=== PATIENT | female | born 1970 | race Caucasian/White ===

== ENCOUNTER 2017-07-04 17:05 | Emergency (ER) | payer OTHER ==
[2017-07-04 17:25] VITALS: BP 113/79
--- NOTE | 2017-07-04 17:58 | UC ---
Skin Complaint HPI - HPI Summary HPI Summary: saw house calls nurse for ingrown left great toe nail a couple of weeks ago portion of nail removed today had some pus and increased redness hx DM - History of Current Complaint Chief Complaint: UCLowerExtremity Time Seen by Provider: 07/04/17 17:38 Stated Complaint: LEFT GREAT TOE INFECTION Hx Obtained From: Patient Onset/Duration: Gradual Onset, Lasting Days Timing: Constant Onset Severity: Mild Current Severity: Mild Pain Intensity: 1 Pain Scale Used: 0-10 Numeric Character: Swelling, Redness Aggravating Factor(s): Touch Associated Signs & Symptoms: Positive: Drainage, Tenderness - Allergy/Home Medications Allergies/Adverse Reactions: Allergies Allergy/AdvReac Type Severity Reaction Status Date / Time Cephalexin [From Keflex] Allergy Nausea And Verified 07/04/17 17:16 Vomiting Penicillins Allergy Hives Verified 07/04/17 17:16 Sulfa Antibiotics Allergy Nausea And Verified 07/04/17 17:16 Vomiting Home Medications: Home Medications Gabapentin CAP(*) [Neurontin 100 mg CAP(*)] 200 mg BID 07/04/17 [History Confirmed 07/04/17] Ibuprofen TAB* [Motrin TAB* 800 MG] 800 mg Q8H PRN 07/04/17 [History Confirmed 07/04/17] Lisinopril TAB* [Prinivil TAB 5 MG*] 1 tab DAILY 07/04/17 [History Confirmed ] Metformin ER (NF) [Glucophage ER 750 MG TAB (NF)] 750 mg BID 07/04/17 [History Confirmed 07/04/17] Pravastatin (NF) [Pravachol (NF)] 10 tab BEDTIME 07/04/17 [History Confirmed ] Review of Systems Constitutional: Negative Skin: Negative Eyes: Negative ENT: Negative Respiratory: Negative Cardiovascular: Negative Gastrointestinal: Negative Genitourinary: Negative Motor: Negative Neurovascular: Negative Musculoskeletal: Negative Neurological: Negative Psychological: Negative Is Patient Immunocompromised?: No All Other Systems Reviewed And Are Negative: Yes PMH/Surg Hx/FS Hx/Imm Hx Previously Healthy: Yes Endocrine History: Diabetes Cardiovascular History: Hypertension - Surgical History Surgical History: Yes Surgery Procedure, Year, and Place: APPENDIX. CARPAL TUNNEL BILATERAL HANDS. RIGHT ANKLE SURGERY TOOK NERVE TO PUT IN HAND - Family History Known Family History: Positive: Cardiac Disease, Hypertension, Diabetes - Social History Alcohol Use: None Substance Use Type: None Smoking Status (MU): Current Every Day Smoker Type: Cigarettes Amount Used/How Often: 1/2 PPD - Immunization History Most Recent Influenza Vaccination: not yet 2016 Physical Exam Triage Information Reviewed: Yes Appearance: Well-Appearing, No Pain Distress, Well-Nourished Vital Signs: Initial Vital Signs Temp 98 F 07/04/17 17:18 Pulse 83 07/04/17 17:18 Resp 18 07/04/17 17:18 BP 113/79 07/04/17 17:18 Pulse Ox 100 07/04/17 17:18 Vital Signs Reviewed: Yes Eyes: Positive: Conjunctiva Clear ENT: Negative: Hearing grossly normal, Nasal congestion, Nasal drainage, Trismus , Muffled/hoarse voice Neck: Positive: Supple, Nontender Respiratory: Positive: Lungs clear, Normal breath sounds, No respiratory distress Cardiovascular: Positive: RRR, No Murmur, Pulses Normal Abdomen Description: Positive: Nontender, No Organomegaly, Soft Musculoskeletal: Positive: ROM Intact, No Edema Neurological: Positive: Alert Psychological Exam: Normal Skin Exam: Other - see image Course/Dx - Diagnoses Provider Diagnoses: cellulits left great toe Discharge - Discharge Plan Condition: Stable Disposition: HOME Prescriptions: DOXYcycline CAP(*) [DOXYcycline 100MG CAP(*)] 100 mg PO BID #14 cap Patient Education Materials: Cellulitis (ED) Referrals: Armen Olsen [Primary Care Provider] - 5 Days (if not better) Images Feet (Multiple View): 1 - erthema/swelling/not flutuent
== END 2017-07-04 17:55 | disposition home or self-care (01) ==
LOC: UCCORT 17:05
DX: L03.032 Cellulitis of left toe (principal); F17.210 Nicotine dependence, cigarettes, uncomplicated; Z88.0 Allergy status to penicillin; Z88.1 Allergy status to other antibiotic agents
CPT/HCPCS: 99212; G0463

== ENCOUNTER 2017-11-09 09:09 | Emergency (ER) | payer OTHER ==
[2017-11-09 10:35] VITALS: BP 113/82
[2017-11-09] MEDS ORDERED: Albuterol 2.5 MG/3 ML NEB.SOL* (0.083%) INH ONE (11:01)
--- NOTE | 2017-11-09 11:18 | UC ---
Respiratory Complaint HPI - HPI Summary HPI Summary: This is a 46 yo female with asthma and DM who presents with c/o 5d of cough and SOB. No CP. Cough is mostly dry. No fever or severe bodyaches. No n/v/d. She has been using her albuterol regularly without relief. No known exposure to influenza - History of Current Complaint Chief Complaint: UCRespiratory Stated Complaint: COUGH, CONGESTION, SINUSES Hx Last Menstrual Period: 09/27/17 Pain Intensity: 0 - Allergies/Home Medications Allergies/Adverse Reactions: Allergies Allergy/AdvReac Type Severity Reaction Status Date / Time cephalexin [From Keflex] Allergy Nausea And Verified 11/09/17 10:25 Vomiting Penicillins Allergy Hives Verified 11/09/17 10:25 Sulfa (Sulfonamide Allergy Nausea And Verified 11/09/17 10:25 Antibiotics) Vomiting Home Medications: Home Medications Acetaminophen [Acetaminophen Extra Strength] 1,000 mg PO ONCE PRN 11/09/17 [ History Confirmed 11/09/17] Albuterol HFA INHALER* [Ventolin HFA Inhaler*] 1 - 2 puff INH Q4H PRN 11/09/17 [ History Confirmed 11/09/17] Dm/PE/Acetaminophen/Doxylamine [Daytime-Nighttime Cold-Flu] 2 each PO ONCE PRN 11/09/17 [History Confirmed 11/09/17] Fluticasone-Salmeterol 100-50* [Advair Diskus 100-50*] 1 puff INH BID 11/09/17 [ History Confirmed 11/09/17] PMH/Surg Hx/FS Hx/Imm Hx Endocrine History: Diabetes Respiratory History: Asthma - Surgical History Surgical History: Yes Surgery Procedure, Year, and Place: APPENDIX. CARPAL TUNNEL BILATERAL HANDS. RIGHT ANKLE SURGERY TOOK NERVE TO PUT IN HAND - Family History Known Family History: Positive: Cardiac Disease, Hypertension, Diabetes - Social History Alcohol Use: None Substance Use Type: None Smoking Status (MU): Heavy Every Day Tobacco Smoker Type: Cigarettes Amount Used/How Often: 1/2 PPD - Immunization History Most Recent Influenza Vaccination: not yet 2017 Review of Systems Constitutional: Negative Skin: Negative Eyes: Negative ENT: Sinus Congestion Respiratory: Shortness Of Breath, Cough Cardiovascular: Negative Gastrointestinal: Negative Genitourinary: Negative Motor: Negative Neurovascular: Negative Musculoskeletal: Negative Neurological: Negative Psychological: Negative Is Patient Immunocompromised?: No All Other Systems Reviewed And Are Negative: Yes Physical Exam Triage Information Reviewed: Yes Appearance: Ill-Appearing Vital Signs: Initial Vital Signs Temp 98 F 11/09/17 10:30 Pulse 92 11/09/17 10:30 Resp 20 11/09/17 10:30 BP 113/82 11/09/17 10:30 Pulse Ox 98 11/09/17 10:30 Vital Signs Reviewed: Yes ENT: Positive: Normal ENT inspection Neck: Positive: Supple, Nontender Respiratory: Positive: Rhonchi, Wheezing Cardiovascular: Positive: RRR, No Murmur Abdominal Exam: Normal Musculoskeletal Exam: Normal Neurological Exam: Normal Psychological Exam: Normal Skin: Positive: Other - plaques present UC Diagnostic Evaluation - Laboratory O2 Sat by Pulse Oximetry: 98 Respiratory Course/Dx - Course Course Of Treatment: This is a 46 yo female with asthma and DM with 5d of cough and congestion with significant wheezing on exam. No focal exam symptoms. Patient declines influenza testing, but agrees to empiric treatment with Tamiflu as her asthma and DM places her at higher risk of complications. - Differential Dx/Diagnosis Differential Diagnosis/HQI/PQRI: Asthma, Exacerbation Of COPD, Laryngitis, Lower Resp Infection Provider Diagnoses: 1. Asthma exacerbation. 2. Suspected influenza Discharge - Discharge Plan Condition: Stable Disposition: HOME Prescriptions: Albuterol 2.5MG/3ML (0.083%)* [Ventolin 2.5 MG/3 ML NEB.FRED*] 2.5 mg INH Q4H PRN #2 box PRN Reason: Sob/Wheezing Nebulizer [Aeroeclipse II] 1 each MC Q4H #1 neb Nebulizer Accessories [Adult Aerosol Mask] 1 each MC Q4H #1 neb Oseltamivir Phosphate [Tamiflu] 75 mg PO BID #10 capsule predniSONE TAB* [Deltasone TAB*] 40 mg PO DAILY #10 tab Patient Education Materials: Influenza (DC), Bronchospasm (ED) Referrals: Kiki RUBALCAVA,Armen Roman [Primary Care Provider] - If Needed Additional Instructions: Instructions: 1. Please take prednisone and Tamiflu as instructed 2. Use nebulized albuterol 3-4 times daily 3. Follow up with PCP if symptoms worsen or do not improve within the next week
== END 2017-11-09 11:19 | disposition home or self-care (01) ==
LOC: UCCORT 09:09
DX: J45.901 Unspecified asthma with (acute) exacerbation (principal); E11.9 Type 2 diabetes mellitus without complications; F17.210 Nicotine dependence, cigarettes, uncomplicated
CPT/HCPCS: 99212; G0463

== ENCOUNTER 2018-01-10 07:58 | Emergency (ER) | payer OTHER ==
[2018-01-10 08:11] VITALS: BP 119/73
--- NOTE | 2018-01-10 08:39 | UC ---
Neck Pain HPI - HPI Summary HPI Summary: 3 days of left-sided posterior neck pain. Pain is worse with movement. She denies any injury. No previous history of neck pain or injury. She denies any unusual activity or heavy physical labor. - History of Current Complaint Chief Complaint: UCGeneralIllness Stated Complaint: NECK PAIN Time Seen by Provider: 01/10/18 08:27 Hx Obtained From: Patient Hx Last Menstrual Period: 12/20/17 Onset/Duration Of Injury/Symptoms: Days Mechanism Of Injury: No Known Trauma Timing: Constant Onset/Duration: Sudden Onset, Still Present Severity: Moderate Pain Intensity: 9 Pain Scale Used: 0-10 Numeric Character: Sharp, Stiff Aggravating Factors: Movement Alleviating Factors: Nothing Associated Signs & Symptoms: Negative: Swelling, Redness, Nuchal Rigity, Weakness, Headache, Paresthesia - Allergies/Home Medications Allergies/Adverse Reactions: Allergies Allergy/AdvReac Type Severity Reaction Status Date / Time cephalexin [From Keflex] Allergy Nausea And Verified 01/10/18 08:07 Vomiting Penicillins Allergy Hives Verified 01/10/18 08:07 Sulfa (Sulfonamide Allergy Nausea And Verified 01/10/18 08:07 Antibiotics) Vomiting PMH/Surg Hx/FS Hx/Imm Hx Endocrine History: Diabetes Cardiovascular History: Hypertension - Surgical History Surgical History: Yes Surgery Procedure, Year, and Place: APPENDIX. CARPAL TUNNEL BILATERAL HANDS. RIGHT ANKLE SURGERY TOOK NERVE TO PUT IN HAND - Family History Known Family History: Positive: Cardiac Disease, Hypertension, Diabetes - Social History Alcohol Use: None Substance Use Type: None Smoking Status (MU): Heavy Every Day Tobacco Smoker Type: Cigarettes Amount Used/How Often: 1/2 PPD - Immunization History Most Recent Influenza Vaccination: not yet 2017 Review Of Systems Constitutional: Positive: Negative Skin: Positive: Negative Respiratory: Positive: Negative Cardiovascular: Positive: Negative Gastrointestinal: Positive: Negative Musculoskeletal: Positive: Arthralgia, Decreased ROM, Myalgia All Other Systems Reviewed And Are Negative: Yes Physical Exam Triage Information Reviewed: Yes Appearance: Well-Appearing, Well-Nourished, Pain Distress - MOD Vital Signs: Initial Vital Signs Temp 97.4 F 01/10/18 08:04 Pulse 97 01/10/18 08:04 Resp 18 01/10/18 08:04 BP 119/73 01/10/18 08:04 Pulse Ox 99 01/10/18 08:04 Vital Signs Reviewed: Yes Eyes: Positive: Conjunctiva Clear ENT: Positive: Hearing grossly normal Neck: Positive: Supple, Nontender, No Lymphadenopathy Respiratory: Positive: No respiratory distress, No accessory muscle use Cardiovascular: Positive: Pulses Normal Abdomen Description: Positive: Soft Musculoskeletal: Positive: No Edema, ROM Limited @ - NECK, Other: - NOT TENDER OVER SPINE OR PARASPINOUS MUSCLES Neurological: Positive: Alert Psychological: Positive: Age Appropriate Behavior Skin: Negative: rashes Neck Pain Course/Dx - Differential Dx/Diagnosis Provider Diagnoses: ACUTE CERVICAL STRAIN Discharge - Sign-Out/Discharge Documenting (check all that apply): Discharge/Admit/Transfer - Discharge Plan Condition: Stable Disposition: HOME Prescriptions: Cyclobenzaprine TAB* [Flexeril TAB*] 10 mg PO BID PRN #30 tab PRN Reason: Pain Naproxen [Naproxen EC] 500 mg PO BID PRN #30 tab PRN Reason: Pain Patient Education Materials: Cervical Strain (ED), Neck Pain (ED) Forms: *Work Release Referrals: Kiki RUBALCAVA,Armen Roman [Primary Care Provider] - If Needed Additional Instructions: YOUR SYMPTOMS SHOULD IMPROVE SIGNIFICANTLY OVER THE NEXT 1-2 WEEKS. IF YOU DO NOT IMPROVE EXPECTED FOLLOW-UP WITH YOUR PCP. YOU MAY BENEFIT FROM IMAGING AT THAT TIME. TAKE MUSCLE RELAXER BEFORE BED. BE SURE TO GO THROUGH SLOW RANGE OF MOTION AND STRETCHING EXERCISES DAILY YOU ARE ABLE TO PREVENT STIFFENING UP AND MAKING THE DISCOMFORT WORSE. - Billing Disposition and Condition Condition: STABLE Disposition: HOME
== END 2018-01-10 08:49 | disposition home or self-care (01) ==
LOC: UCCORT 07:58
DX: S16.1XXA Strain of muscle, fascia and tendon at neck level, initial encounter (principal); X58.XXXA Exposure to other specified factors, initial encounter; Y92.9 Unspecified place or not applicable; F17.210 Nicotine dependence, cigarettes, uncomplicated; Z88.0 Allergy status to penicillin; Z88.3 Allergy status to other anti-infective agents; Z88.2 Allergy status to sulfonamides
CPT/HCPCS: 99212; G0463

== ENCOUNTER 2018-07-07 16:02 | Emergency (ER) | payer OTHER ==
[2018-07-07 16:36] VITALS: BP 114/79
--- NOTE | 2018-07-07 16:57 | UC ---
Ear Complaint HPI - HPI Summary HPI Summary: C/O left ear pain over the last 2 weeks. Dull ache, Rushing sound in the ear with swollowing or yawning. - History of Current Complaint Chief Complaint: UCEar Stated Complaint: LT EAR COMPLAINT Time Seen by Provider: 07/07/18 16:49 Hx Obtained From: Patient Hx Last Menstrual Period: 07/05/18 ?: No Onset/Duration: Gradual Onset, Lasting Weeks - 2, Still Present Severity Initially: Mild Severity Currently: Mild Pain Intensity: 3 Related History: Seasonal Allergies - Allergies/Home Medications Allergies/Adverse Reactions: Allergies Allergy/AdvReac Type Severity Reaction Status Date / Time cephalexin [From Keflex] Allergy Nausea And Verified 07/07/18 16:28 Vomiting Penicillins Allergy Hives Verified 07/07/18 16:28 Sulfa (Sulfonamide Allergy Nausea And Verified 07/07/18 16:28 Antibiotics) Vomiting PMH/Surg Hx/FS Hx/Imm Hx Endocrine History: Diabetes, Dyslipidemia Cardiovascular History: Hypertension Respiratory History: Asthma - Surgical History Surgical History: Yes Surgery Procedure, Year, and Place: APPENDIX. CARPAL TUNNEL BILATERAL HANDS. RIGHT ANKLE SURGERY TOOK NERVE TO PUT IN HAND - Family History Known Family History: Positive: Cardiac Disease, Hypertension, Diabetes - Social History Occupation: Employed Full-time Lives: With Family Alcohol Use: None Substance Use Type: None Smoking Status (MU): Heavy Every Day Tobacco Smoker Type: Cigarettes Amount Used/How Often: 1/2 PPD - Immunization History Most Recent Influenza Vaccination: not yet 2017 Review of Systems ENT: Ear Ache Is Patient Immunocompromised?: No All Other Systems Reviewed And Are Negative: Yes Physical Exam Triage Information Reviewed: Yes Appearance: Well-Appearing, No Pain Distress, Obese Vital Signs: Initial Vital Signs Temp 98 F 07/07/18 16:30 Pulse 84 07/07/18 16:30 Resp 18 07/07/18 16:30 BP 114/79 07/07/18 16:30 Pulse Ox 98 07/07/18 16:30 Vital Signs Reviewed: Yes Eyes: Positive: Conjunctiva Inflamed ENT: Positive: Pharynx normal, Nasal congestion - with allergic changes, TMs normal - slightly retracted but mobile with pneumatic otoscopy Neck exam: Normal Respiratory Exam: Normal Cardiovascular Exam: Normal Musculoskeletal Exam: Normal Neurological Exam: Normal Psychological Exam: Normal Skin: Positive: rashes - Psoriasis Ear Complaint Course/Dx - Differential Dx/Diagnosis Differential Diagnosis/HQI/PQRI: Barotrauma, Otitis Externa, Otitis Media, Perforated TM Provider Diagnoses: Allergic rhinitis. Left eustachian tube dysfunction Discharge - Sign-Out/Discharge Documenting (check all that apply): Patient Departure All imaging exams completed and their final reports reviewed: No Studies - Discharge Plan Condition: Stable Disposition: HOME Patient Education Materials: Allergic Rhinitis (ED) Referrals: Kiki RUBALCAVA,Armen Roman [Primary Care Provider] - Additional Instructions: NEILMED SINUS RINSE: CHECK OUT AT [employer] Saline nasal wash helps with mucous, allergies and congestion. It can be used up to twice a day or only as needed. Use lukewarm tap water. It does not have to be sterilized or distilled water. Do 1/3 on each side and snort out of both nostrils. Repeat the process with 1/6 of the bottle on each side with snorting in between to finish the solution in the bottle EUSTATION TUBE DYSFUNCTION: The tube that allows the middle ear to equalize the pressure with the outside air is blocked. This can be due to colds, allergies, smoke, or other irritants. Short term treatment can include Afrin, sudafed and nasal cortisone sprays for allergies. - Billing Disposition and Condition Condition: STABLE Disposition: Home
== END 2018-07-07 17:15 | disposition home or self-care (01) ==
LOC: UCCORT 16:02
DX: J30.9 Allergic rhinitis, unspecified (principal); H69.82 Other specified disorders of Eustachian tube, left ear; Z88.0 Allergy status to penicillin; Z88.1 Allergy status to other antibiotic agents; E11.9 Type 2 diabetes mellitus without complications; I10 Essential (primary) hypertension; F17.210 Nicotine dependence, cigarettes, uncomplicated
CPT/HCPCS: 99211; G0463